=== PATIENT | female | born 1970 | race Two or more races ===

== ENCOUNTER 2019-06-26 18:58 | Emergency (ER) | payer MEDICAID ==
[~2019-06-26] VITALS: Ht 157.5 cm; Wt 78.9 kg
[2019-06-26 20:15] VITALS: BP 130/69
== END 2019-06-26 21:35 | disposition home or self-care (01) ==
LOC: ER 18:58
DX: M23.91 Unspecified internal derangement of right knee (principal)
CPT/HCPCS: 29505; 73562; 81025

== ENCOUNTER 2023-01-23 13:17 | Emergency (ER) | payer MEDICAID ==
[~2023-01-23] VITALS: Ht 157.5 cm; Wt 72.0 kg
[2023-01-23 14:33] LABS: Basophils # (auto) 0 10 ^3/uL (0-0.2); Basophils % (auto) 0.1 % (0.0-2.0); Eosinophils # (auto) 0 10 ^3/uL (0-0.8); Monocytes # (auto) 0.3 10 ^3/uL (0-1.3); Neutrophils # (auto) 8.9 10 ^3/uL (1.6-8.6); White Blood Cell 9.7 10^3/uL (4.4-10.8)
[2023-01-23 14:36] LABS: Hematocrit 39.8 % (36.0-46.0); Lymphocytes # (auto) 0.5 10 ^3/uL (0.4-5.4); Lymphocytes % (auto) 5.1 % (10.0-50.0); Mean Corpuscular Hemoglobin 26.5 pg (28.0-32.0); Mean Corpuscular Hgb Conc. 32.6 g/dL (32.0-36.0); Mean Corpuscular Volume 81.2 fL (80.0-100.0); Monocytes % (auto) 3.3 % (0.0-12.0); Neutrophils % (auto) 91.5 % (37.0-80.0); Red Cell Distribution Width 16.9 % (11.8-14.3)
[2023-01-23 14:45] LABS: Albumin 3.9 g/dL (3.4-5.0); Calcium 8.4 mg/dL (8.5-10.1); Potassium 3.7 mmol/L (3.5-5.1)
[2023-01-23 14:48] LABS: BUN/Creatinine Ratio 15.6 (10.0-20.0); Bilirubin, Total 0.7 mg/dL (0.2-1.0)
[2023-01-23 15:27] LABS: Urine Bacteria NONE SEEN /hpf (None Seen); Urine Blood Negative /uL (Negative); Urine Clarity HAZY (Clear); Urine Color Yellow (Yellow); Urine Mucus MODERATE (None Seen); Urine Protein, UAD TRACE (Negative); Urine Urobilinogen Normal (Negative); Urine WBC 2 /hpf (0 - 5); Urine pH 5.5 (5.0-8.0)
[2023-01-23 17:35] VITALS: BP 110/66; PULSE 87; RESP 16; TEMP 98.9; O2SAT 96
== END 2023-01-23 17:53 | disposition home or self-care (01) ==
LOC: ER 13:17
DX: K80.20 Calculus of gallbladder without cholecystitis without obstruction (principal); D21.9 Benign neoplasm of connective and other soft tissue, unspecified; N83.8 Other noninflammatory disorders of ovary, fallopian tube and broad ligament
CPT/HCPCS: 36415; 74176; 76830; 76856; 80053; 81001; 83690; 84484; 85025

== ENCOUNTER 2023-07-24 20:20 | Emergency (ER) | payer MEDICAID ==
[~2023-07-24] VITALS: Ht 157.5 cm; Wt 72.2 kg
[2023-07-24 22:30] VITALS: BP 138/66; PULSE 89; RESP 18; TEMP 97.4; O2SAT 97
[2023-07-24] MEDS ORDERED: IBUP-1456 PO (22:48)
[2023-07-24] MEDS: KETOROLAC TROMETH 60MG/2ML VIAL IM ONE (22:48)
[2023-07-24] MEDS ORDERED: GABA-1250 PO (22:48)
== END 2023-07-24 23:04 | disposition home or self-care (01) ==
LOC: ER 20:20
DX: S83.91XA Sprain of unspecified site of right knee, initial encounter (principal); G57.93 Unspecified mononeuropathy of bilateral lower limbs; X58.XXXA Exposure to other specified factors, initial encounter; Y93.89 Activity, other specified; Y92.89 Other specified places as the place of occurrence of the external cause; Y99.8 Other external cause status
CPT/HCPCS: 29505; 96372; 99283; J1885

== ENCOUNTER 2023-08-24 21:26 | Emergency (ER) | payer MEDICAID ==
[~2023-08-24] VITALS: Ht 157.5 cm; Wt 59.6 kg
[~2023-08-24 21:26] MED LIST: GABA-1250 PO; IBUP-1456 PO
[2023-08-24 22:11] LABS: Urine Amorphous Crystal FEW /hpf (None Seen); Urine Bacteria FEW /hpf (None Seen); Urine Blood 3+ /uL (Negative); Urine Clarity CLOUDY (Clear); Urine Color PINK (Yellow); Urine Mucus MANY (None Seen); Urine Protein, UAD 2+ (Negative); Urine Specific Gravity 1.028 (1.001-1.035); Urine Urobilinogen Normal (Negative); Urine WBC 203 /hpf (0 - 5); Urine WBC Clumps PRESENT /hpf (None Seen); Urine pH 5.5 (5.0-8.0)
[2023-08-24 22:34] LABS: Basophils # (auto) 0 10 ^3/uL (0-0.2); Basophils % (auto) 0.3 % (0.0-2.0); Eosinophils # (auto) 0.1 10 ^3/uL (0-0.8); Eosinophils % (auto) 0.9 % (0.0-7.0); Hematocrit 42.5 % (36.0-46.0); Hemoglobin 13.9 g/dL (12.2-16.2); Lymphocytes # (auto) 1.5 10 ^3/uL (0.4-5.4); Lymphocytes % (auto) 12.6 % (10.0-50.0); Mean Corpuscular Hemoglobin 27.1 pg (28.0-32.0); Mean Corpuscular Hgb Conc. 32.6 g/dL (32.0-36.0); Monocytes # (auto) 0.9 10 ^3/uL (0-1.3); Monocytes % (auto) 7.5 % (0.0-12.0); Neutrophils # (auto) 9.7 10 ^3/uL (1.6-8.6); Neutrophils % (auto) 78.7 % (37.0-80.0); Red Blood Cells 5.12 10^6/uL (4.0-5.20); Red Cell Distribution Width 16.4 % (11.8-14.3); White Blood Cell 12.3 10^3/uL (4.4-10.8)
[2023-08-24 22:52] LABS: Alanine Aminotransferase 13 U/L (7-40); Albumin 5.1 g/dL (3.2-4.8); Alkaline Phosphatase 95 U/L (46-116); Anion Gap 5 (5-15); Aspartate Aminotransferase 17 U/L (13-40); BUN/Creatinine Ratio 16.5 (10.0-20.0); Bilirubin, Total 0.5 mg/dL (0.2-1.0); Blood Urea Nitrogen 17 mg/dL (9-23); Calcium 9.8 mg/dL (8.5-10.1); Carbon Dioxide 28 mmol/L (20-30); Chloride 105 mmol/L (98-107); Glucose 92 mg/dL (74-106); Potassium 3.4 mmol/L (3.5-5.1); Sodium 138 mmol/L (136-145); Total Protein 8.2 g/dL (5.7-8.2)
[2023-08-24 23:04] LABS: Lipase 52 U/L (12-53)
[2023-08-24] MEDS ORDERED: CEPH250C PO (23:10)
[2023-08-24] MEDS ORDERED: ZOFR4T PO (23:12)
[2023-08-24] MEDS ORDERED: LOP2C PO (23:12)
[2023-08-25 00:16] VITALS: BP 136/85; PULSE 105; RESP 19; TEMP 98; O2SAT 97
[2023-08-25] MEDS: ONDANSETRON ODT 4 MG TAB PO ONE (00:20)
[2023-08-25] MEDS: CEPHALEXIN 250 MG CAP PO ONE (00:20)
== END 2023-08-25 00:25 | disposition home or self-care (01) ==
LOC: ER 21:26
DX: N39.0 Urinary tract infection, site not specified (principal); K52.9 Noninfective gastroenteritis and colitis, unspecified
CPT/HCPCS: 36415; 80053; 81001; 83690; 85025; 99283; Q0162